=== PATIENT | female | born 1980 | race Caucasian/White ===

== ENCOUNTER 2022-05-29 13:27 | Outpatient (CLI) | payer OTHER, SELFPAY ==
--- NOTE | 2022-05-29 13:32 | MM_ITS ---
WS: [id number] Exam: [place] [id number] Date/Time of Exam: 05/29/2022 1:35 PM Reason For Exam: SCREENING VIEWS: MLO and CC views both breasts. 3D digital tomosynthesis is also included in this exam. No priors. Findings: Incompletely imaged asymmetric density seen in the posterior central right breast on the cc view. The re is also a 12 mm asymmetric nodular density seen in the posterior right breast on the MLO view. Thi s is slightly below nipple level. No architectural distortion or suspicious calcification. The left b reast was unremarkable. Scattered fibroglandular densities in both breasts. Exaggerated craniocaudal view of the right breast as well as compression spot views in the MLO projection would be indicated f or further workup in addition to regional ultrasound of this area. MM/[place] [id number] Impression: BI-RADS: 0-Incomplete: Need additional imaging evaluation FOLLOW-UP: See Report This mammogram was also analyzed by the Computer Aided Detection System R2 Imag e Respiratory Therapist.
== END 2022-05-29 13:28 | disposition home or self-care (01) ==
LOC: RAD 13:27
PROVIDERS: PCP Family Medicine; Visit Provider Family Medicine
DX: Z12.31 Encounter for screening mammogram for malignant neoplasm of breast (principal)
CPT/HCPCS: 77063; 77067

== ENCOUNTER 2022-08-06 09:56 | Outpatient (CLI) | payer OTHER, SELFPAY ==
--- NOTE | 2022-08-06 10:02 | MM_ITS ---
WS: [id number] ADDITIONAL VIEWS RIGHT MAMMOGRAM WITH DIGITAL BREAST TOMOSYNTHESIS. RIGHT BREAST ULTRASOUND HISTORY: ABNORMAL MAMMOGRAM COMPARISON: 05/29/2022 RIGHT MAMMOGRAM: Spot compression views and true ML with digital breast tomosynthesis and SM. The very vague asymmetries persist in the posterior RIGHT breast along the 6-12 o'clock axis. Vague a symmetry measuring 11 mm. There is a vague asymmetry just above the nipple line and one in the infram ammary fold. These are less masslike than on the screening mammogram. Ultrasound to follow. RIGHT BREAST ULTRASOUND 2-D and color Doppler imaging submitted. There are no abnormalities noted on the ultrasound along the central breast from 12-6 o'clock. MM/[place] [id number] IMPRESSION: BI-RADS: 3-Probably Benign FOLLOW UP: 6 Month Follow-up Recommend diagnostic RIGHT mammogram and possible ultrasound follow-up in 6 mon ths to reevaluate the asymmetries seen by mammography only.
== END 2022-08-06 09:57 | disposition home or self-care (01) ==
LOC: RAD 09:57
PROVIDERS: PCP Family Medicine; Visit Provider Family Medicine
DX: R92.8 Other abnormal and inconclusive findings on diagnostic imaging of breast (principal)
CPT/HCPCS: 76642; 77061

== ENCOUNTER 2023-02-03 08:07 | Outpatient (CLI) | payer OTHER, SELFPAY ==
--- NOTE | 2023-02-03 08:19 | MM_ITS ---
WS: [id number] DIAGNOSTIC RIGHT DIGITAL TOMOSYNTHESIS MAMMOGRAPHY WITH CAD. RIGHT breast ultrasound, limited HISTORY: 6MFU COMPARISON: 08/06/2022, 05/29/2022 Technique: CC, MLO and ML views. Spot compression views CC and MLO. Breast composition: There are scattered areas of fibroglandular density. Asymmetry persists in the p osterior RIGHT breast central to the nipple. There is a very vague asymmetry seen on the lateral proj ection above the nipple and additional below the nipple, just above the inframammary fold. RIGHT breast ultrasound, limited. No definite soft tissue masses are identified by ultrasound. There is mild heterogeneity in the soft tissue but no well-formed or circumscribed mass. No distortion or shadowing. MM/[place] [id number] IMPRESSION: BI-RADS: 3-Probably Benign FOLLOW UP: 6 Month Follow-up Patient to return in 6 months for annual mammogram. Additional imaging of the R IGHT breast abnormalities should also be obtained at that time. No interval ravi nge since 05/29/2022 or 08/06/2022. Long-term imaging follow-up recommended.
== END 2023-02-03 08:08 | disposition home or self-care (01) ==
LOC: RAD 08:10
PROVIDERS: PCP Family Medicine; Visit Provider Family Medicine
DX: N60.01 Solitary cyst of right breast (principal)
CPT/HCPCS: 76642; 77061; G0279

== ENCOUNTER 2023-10-07 14:56 | Outpatient (CLI) | payer SELFPAY ==
--- NOTE | 2023-10-07 14:57 | MM_ITS ---
WS: [id number] DIAGNOSTIC BILATERAL DIGITAL BREAST TOMOSYNTHESIS MAMMOGRAPHY WITH CAD RIGHT breast ultrasound, limited. HISTORY: 6[facility] asymmetry RIGHT breast. COMPARISON: 08/06/2022, 02/03/2023, 05/29/2022 TECHNIQUE: Bilateral craniocaudad, mediolateral oblique, and mediolateral views are submitted with to moslidia and SILVIO. Computer aided detection utilized. Breast composition: There are scattered areas of fibroglandular density. Focal asymmetry persist sanford uring 12 mm in the posterior mid RIGHT breast against the chest wall. This is along the 6:00 axis. Th ere does appear to be intermixed fat within this lesion suggesting this is benign. There are addition al scattered densities within the LEFT breast which are probably related to poor compression. These h ave not been present on the prior study. RIGHT breast ultrasound, limited. Ultrasound is directed to the posterior inferior RIGHT breast predominantly along the 6:00 axis. Agai n, there is no abnormality noted posteriorly against the chest wall. IMPRESSION: MM/[place] [id number] BI-RADS: 3-Probably Benign FOLLOW UP: 6 Month Follow-up 1. Recommend continued 6-month surveillance of the asymmetry noted in the poste rior RIGHT breast. There does appear to be some fat present within this asymmet ry suggesting this is benign. No identifiable abnormality on the ultrasound. Th is will need to be surgically followed for at least 2 years. No interval change since 05/29/2022.
== END 2023-10-07 14:57 | disposition home or self-care (01) ==
PROVIDERS: PCP Family Medicine; Visit Provider Family Medicine
DX: R92.8 Other abnormal and inconclusive findings on diagnostic imaging of breast (principal); N64.89 Other specified disorders of breast
CPT/HCPCS: 76642; 77062; G0279

== ENCOUNTER 2024-11-23 14:59 | Outpatient (CLI) | payer OTHER, SELFPAY ==
--- NOTE | 2024-11-23 15:07 | MM_ITS ---
WS: [id number] DIAGNOSTIC BILATERAL DIGITAL BREAST TOMOSYNTHESIS MAMMOGRAPHY WITH CAD , RIGHT breast ultrasound, limited HISTORY: ABNORMAL MAMMOGRAM COMPARISON: 05/29/2022, 08/06/2022, 10/07/2023 TECHNIQUE: Bilateral craniocaudad, mediolateral oblique, and mediolateral views are submitted with to mosynthesis and SM. Spot compression RIGHT MLO and CC. Computer aided detection utilized. Breast composition: There are scattered areas of fibroglandular density. Reidentified is a focal asymmetry in the posterior RIGHT breast near 5-6 o'clock measuring 9 x 9 x 11 mm. Does not appear significantly changed in size as compared to the prior imaging studies. No abnor mality noted in the LEFT breast. Will reattempt ultrasound to try to visualize this area. RIGHT breast ultrasound, limited. No abnormality is noted in the posterior RIGHT breast at 5-6 o'clock. MM/MM diag BI tomosynthesis [id number] IMPRESSION: BI-RADS: 2 - Benign. FOLLOW UP: 1 Year Follow-up 1. This asymmetry in the posterior RIGHT breast has been stable since 2 without a significant or obvious increase in size. Due to the long-term stabi lity return to annual screening. I did explain this to the patient at the time of the mammographic and ultrasound evaluation. Patient to return in 1 year for annual screening mammogram.
== END 2024-11-23 15:00 | disposition home or self-care (01) ==
LOC: RAD 15:03
PROVIDERS: PCP Family Medicine; Visit Provider Family Medicine
DX: R92.8 Other abnormal and inconclusive findings on diagnostic imaging of breast (principal); R92.323 Mammographic fibroglandular density, bilateral breasts; N64.89 Other specified disorders of breast
CPT/HCPCS: 76642; 77062; G0279